=== PATIENT | male | born 1990 | race Two or more races ===

== ENCOUNTER 2017-03-22 13:24 | Emergency (ER) | payer SELFPAY ==
[~2017-03-22] VITALS: Ht 160 cm; Wt 108.9 kg
[2017-03-22 13:40] VITALS: BP 147/72
--- NOTE | 2017-03-22 13:56 | PHYS DOC ---
Adult General Chief Complaint Chief Complaint: HAND PROBLEM HPI HPI Patient is a 27 year old male with no significant medical history who presents requesting an orthopedic doctor. Patient states he broke his left hand a week ago, he states he was seen by a chiropractor who splinted him but did not give him an orthopedic doctor for follow-up. 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 Integument: Denies rash or skin lesions [] Neurologic: Denies headache, focal weakness or sensory changes [] Endocrine: Denies polyuria or polydipsia [] Allergies Allergies Allergies Coded Allergies Type Severity Reaction Last Updated Verified No Known Drug Allergies 03/22/17 No Physical Exam Physical Exam Constitutional: Well developed, well nourished, no acute distress, non-toxic appearance. [] HENT: Normocephalic, atraumatic, bilateral external ears normal, oropharynx moist, no oral exudates, nose normal. [] Skin: Warm, dry, no erythema, no rash. [] Back: No tenderness, no CVA tenderness. [] Extremities: Left upper extremity in a sling. Patient has a thumb spica. Left fingers and hand have mild edema. Patient able to move the left fingers. Cap refill less than 2 seconds the left hand. Sensation intact to the left hand. Neurologic: Alert and oriented X 3, normal motor function, normal sensory function, no focal deficits noted. [] Psychologic: Affect normal, judgement normal, mood normal. [] EKG EKG [] Radiology/Procedures Radiology/Procedures [] Course & Med Decision Making Course & Med Decision Making Pertinent Labs and Imaging studies reviewed. (See chart for details) Patient is in the ED requesting an orthopedic doctor for follow-up after hand fracture week ago. He was seen by a chiropractor who splinted him but did not give him an orthopedic doctor. We did provide patient an orthopedic doctor for follow-up as soon as he can. Dragon Disclaimer Dragon Disclaimer This electronic medical record was generated, in whole or in part, using a voice recognition dictation system. Departure Departure Impression: Primary Impression: Hand fracture, left Disposition: 01 HOME, SELF-CARE Condition: STABLE Referrals: ABHINAV BOUCHER II, MD Call the orthopedic doctor provided today and set up a follow-up appointment Patient Instructions: Hand Fracture Additional Instructions: We provided you an orthopedic doctor for follow-up for follow up for your hand fracture. Call the office today and set up a follow-up appointment. Try and ice and elevate the affected extremity. Problem Qualifiers Primary Impression: Hand fracture, left Encounter type: subsequent encounter Fracture healing: with routine healing Qualified Codes: S62.92XD - Unspecified fracture of left wrist and hand, subsequent encounter for fracture with routine healing SHIRLENE [employer] MA[employer] Mar 22, 2017 13:56
== END 2017-03-22 14:10 | disposition home or self-care (01) ==
LOC: ER 13:24
DX: S62.92XD Unspecified fracture of left hand, subsequent encounter for fracture with routine healing (principal); X58.XXXD Exposure to other specified factors, subsequent encounter
CPT/HCPCS: 99281